=== PATIENT | female | born 1985 | race Two or more races ===

== ENCOUNTER → 2019-04-10 14:30 | Outpatient (CLI) | payer OTHER | END | disposition home or self-care (01) | LOC: LAB 14:30 | DX: D50.8 Other iron deficiency anemias (principal); D51.8 Other vitamin B12 deficiency anemias; I10 Essential (primary) hypertension; Z80.3 Family history of malignant neoplasm of breast; Z80.0 Family history of malignant neoplasm of digestive organs; D72.818 Other decreased white blood cell count; J45.998 Other asthma ==

== ENCOUNTER → 2019-04-14 | Outpatient (CLI) | payer OTHER | END | disposition home or self-care (01) | LOC: TOM 08:09 | DX: J45.998 Other asthma (principal); Z80.3 Family history of malignant neoplasm of breast; Z80.0 Family history of malignant neoplasm of digestive organs; D72.818 Other decreased white blood cell count ==

== ENCOUNTER 2019-10-04 07:43 | Outpatient (CLI) | payer OTHER | END 2019-10-04 12:05 | disposition home or self-care (01) | LOC: LAB 07:43 | PROVIDERS: ATTEND Internal Medicine Hematology & Oncology | DX: D50.8 Other iron deficiency anemias (principal); I10 Essential (primary) hypertension; D51.8 Other vitamin B12 deficiency anemias; D51.1 Vitamin B12 deficiency anemia due to selective vitamin B12 malabsorption with proteinuria; D51.0 Vitamin B12 deficiency anemia due to intrinsic factor deficiency; E03.8 Other specified hypothyroidism; E06.3 Autoimmune thyroiditis; Z80.3 Family history of malignant neoplasm of breast; Z80.0 Family history of malignant neoplasm of digestive organs; D72.818 Other decreased white blood cell count; D51.3 Other dietary vitamin B12 deficiency anemia; J45.998 Other asthma ==

== ENCOUNTER 2019-10-04 08:30 | Outpatient (CLI) | payer OTHER | END 2019-10-04 08:41 | disposition home or self-care (01) | LOC: SONOGRAMA 08:30 | PROVIDERS: ATTEND Internal Medicine Hematology & Oncology | DX: D51.3 Other dietary vitamin B12 deficiency anemia (principal); J45.998 Other asthma; E03.8 Other specified hypothyroidism; Z80.3 Family history of malignant neoplasm of breast; Z80.0 Family history of malignant neoplasm of digestive organs; D72.818 Other decreased white blood cell count ==

== ENCOUNTER → 2019-10-11 | Outpatient (CLI) | payer OTHER | END | disposition home or self-care (01) | LOC: MRI 07:59 | PROVIDERS: ATTEND Physical Medicine & Rehabilitation | DX: M54.6 Pain in thoracic spine (principal) | CPT/HCPCS: 72146 ==

== ENCOUNTER 2019-12-22 08:41 | Outpatient (CLI) | payer OTHER | END 2019-12-22 09:07 | disposition home or self-care (01) | LOC: LAB 08:41 | PROVIDERS: ATTEND Internal Medicine Hematology & Oncology | DX: D50.8 Other iron deficiency anemias (principal); I10 Essential (primary) hypertension; D51.8 Other vitamin B12 deficiency anemias; D68.8 Other specified coagulation defects; D69.1 Qualitative platelet defects; Z80.3 Family history of malignant neoplasm of breast; Z80.0 Family history of malignant neoplasm of digestive organs; D72.818 Other decreased white blood cell count; D51.3 Other dietary vitamin B12 deficiency anemia; J45.998 Other asthma ==

== ENCOUNTER 2020-05-24 05:53 | Day surgery (SDC) | payer OTHER ==
[~2020-05-24 05:53] MED LIST: DAILY MULTIPLE1 EAC2 PO
== END 2020-05-24 18:30 | disposition home or self-care (01) ==
LOC: CIR.AMB 05:53
PROVIDERS: ATTEND Plastic Surgery
DX: N62 Hypertrophy of breast (principal); Z20.828 Contact with and (suspected) exposure to other viral communicable diseases

== ENCOUNTER 2021-03-27 15:42 | Outpatient (CLI) | payer OTHER | END 2021-03-27 16:00 | disposition home or self-care (01) | LOC: PPH VACUNA 15:42 | PROVIDERS: ATTEND Emergency Medicine Pediatric Emergency Medicine | DX: Z23 Encounter for immunization (principal) ==